=== PATIENT | female | born 1980 | race Caucasian/White ===

== ENCOUNTER 2017-11-25 05:00 | Inpatient (IN) | payer BC ==
[2017-11-25] MEDS ORDERED: Gabapentin 300 MG Cap PO ONE (05:30)
[2017-11-25] MEDS ORDERED: Acetaminophen 500 MG Tab PO ONE (05:30)
[2017-11-25] MEDS ORDERED: Celecoxib 200 MG Cap PO ONE (05:30)
[2017-11-25] MEDS ORDERED: Scopolamine 1.5 MG Transdermal Patch TOP SCH (05:30)
[2017-11-25] MEDS ORDERED: Dextrose 5%-Lactated Ringers 1,000 ML IV SCH (06:00)
[2017-11-25] MEDS ORDERED: cefOXitin 2 GM Vial ONE (06:36)
[2017-11-25] MEDS ORDERED: cefOXitin 2 GM in Premix Bag 1 BAG IV ONE (07:00)
[2017-11-25] MEDS ORDERED: fentaNYL 250 MCG/5 ML SDV ONE (07:01)
[2017-11-25] MEDS ORDERED: Glycopyrrolate 0.2 MG/ML 5 ML MDV ONE (07:02)
[2017-11-25] MEDS ORDERED: Midazolam 1 MG/ML 2 ML SDV ONE (07:02)
[2017-11-25] MEDS ORDERED: Succinylcholine 200 MG/10 ML MDV ONE (07:02)
[2017-11-25] MEDS ORDERED: Rocuronium 50 MG/5 ML Vial ONE (07:02)
[2017-11-25] MEDS ORDERED: Ondansetron 4 MG/2 ML SDV ONE (07:02)
[2017-11-25] MEDS ORDERED: Neostigmine Methylsulfate 1 MG/ML 5 ML Syringe ONE (07:02)
[2017-11-25] MEDS ORDERED: Propofol 200 MG/20 ML SDV ONE (07:02)
[2017-11-25] MEDS ORDERED: Dexamethasone 4 MG/ML SDV ONE (07:02)
[2017-11-25] MEDS ORDERED: Lidocaine 2% 100 MG/5 ML Syringe IVPUSH ONE (07:30)
[2017-11-25] MEDS ORDERED: Ropivacaine 60 ML, Dexamethasone 8 MG, EPINEPHrine 0.4 MG, Sodium Chloride 0.9% 17.6 ML NERVRT SCH ×4 (07:30)
[2017-11-25] MEDS ORDERED: Ketamine 500 MG/5 ML MDV IV SCH (07:30)
[2017-11-25] MEDS ORDERED: Lactated Ringers 1,000 ML ONE (08:33)
[2017-11-25] MEDS ORDERED: Insulin Aspart 100 Units/ML 3 ML Pen SUBCUT ONE (09:29)
[2017-11-25] MEDS ORDERED: Ondansetron 4 MG/2 ML SDV IVPUSH ONE (09:30)
[2017-11-25] MEDS ORDERED: Ropivacaine 30 ML, Dexamethasone 8 MG, EPINEPHrine 0.4 MG, Sodium Chloride 0.9% 47.6 ML NERVRT SCH ×4 (10:15)
[2017-11-25] MEDS: Lidocaine 0.4%/D5W 2 GM/500 ML BAG IV SCH (10:33)
[2017-11-25] MEDS ORDERED: hydrOXYzine HCl 100 MG/2 ML SDV ONE (10:36)
[2017-11-25] MEDS ORDERED: diphenhydrAMINE 50 MG/ML SDV IVPUSH PRN (11:00)
[2017-11-25] MEDS ORDERED: 50% Dextrose in Water 50 ML Syringe IVPUSH PRN (11:00)
[2017-11-25] MEDS ORDERED: Labetalol 20 MG/4 ML Syringe IVPUSH PRN (11:00)
[2017-11-25] MEDS ORDERED: Ondansetron 4 MG/2 ML SDV IVPUSH PRN (11:00)
[2017-11-25] MEDS ORDERED: Insulin Aspart 100 Units/ML 3 ML Pen SUBCUT PRN (11:00)
[2017-11-25] MEDS ORDERED: hydrOXYzine HCl 100 MG/2 ML SDV IM PRN (11:00)
[2017-11-25] MEDS ORDERED: Metoclopramide 10 MG/2 ML SDV IVPUSH PRN (11:00)
[2017-11-25] MEDS ORDERED: Glucagon,Human Recombinant 1 MG Vial IM PRN (11:00)
[2017-11-25] MEDS: Pantoprazole 40 MG Vial IVPUSH SCH (11:21)
[2017-11-25] MEDS ORDERED: Acetaminophen 160 MG Tab,Disintegrating PO SCH (12:00)
[2017-11-25] MEDS: Acetaminophen 160 MG Tab,Disintegrating PO SCH ×2 (12:39→18:12)
[2017-11-25] MEDS: cefOXitin 2 GM in Sodium Chloride 0.9% 50 ML IV SCH ×2 (13:34→18:12)
[2017-11-25] MEDS: Gabapentin 250 MG/5 ML Solution ML 470 ML Bottle PO SCH ×2 (14:02→21:32)
[2017-11-25] MEDS: MVI, Adult with Vitamin K 10 ML, Thiamine 200 MG, Chromium/Copper/Mang/Selen/Zn 1 ML in... IV SCH ×4 (15:19)
[2017-11-25] MEDS: Heparin Sodium 5,000 Units/ML Vial SUBCUT SCH (18:11)
[2017-11-25] MEDS: Dextrose 5%-Lactated Ringers 1,000 ML IV SCH (21:38)
[2017-11-26] MEDS: Acetaminophen 160 MG Tab,Disintegrating PO SCH ×4 (00:24→17:02)
[2017-11-26] MEDS: cefOXitin 2 GM in Sodium Chloride 0.9% 50 ML IV SCH (00:30)
[2017-11-26] MEDS: Lidocaine 0.4%/D5W 2 GM/500 ML BAG IV SCH (00:31)
[2017-11-26] MEDS ORDERED: Iohexol 647 MG/ML 50 ML SDV PO PRN (03:16)
[2017-11-26] MEDS: Dextrose 5%-Lactated Ringers 1,000 ML IV SCH (03:43)
[2017-11-26] MEDS: Heparin Sodium 5,000 Units/ML Vial SUBCUT SCH ×2 (06:14→17:03)
[2017-11-26] MEDS ORDERED: Oxymetazoline 0.05% Nasal Spray 15 ML Bottle NAS PRN (08:07)
[2017-11-26] MEDS ORDERED: Dextrose 5%-Lactated Ringers 1,000 ML IV SCH (08:15)
[2017-11-26] MEDS: Gabapentin 250 MG/5 ML Solution ML 470 ML Bottle PO SCH ×3 (08:30→22:34)
[2017-11-26] MEDS: Celecoxib 200 MG Cap PO SCH (08:32)
[2017-11-26] MEDS: SCOPOLAMINE PATCH CHECK TOP SCH (08:33)
[2017-11-26] MEDS ORDERED: FLUoxetine 20 MG Cap PO SCH ×2 (09:00→21:00)
[2017-11-26] MEDS: Pantoprazole 40 MG Vial IVPUSH SCH (11:28)
[2017-11-26] MEDS: MVI, Adult with Vitamin K 10 ML, Thiamine 200 MG, Chromium/Copper/Mang/Selen/Zn 1 ML in... IV SCH ×4 (17:02)
[2017-11-27] MEDS: Acetaminophen 160 MG Tab,Disintegrating PO SCH ×3 (00:06→12:15)
[2017-11-27] MEDS: Heparin Sodium 5,000 Units/ML Vial SUBCUT SCH (05:50)
[2017-11-27] MEDS: Celecoxib 200 MG Cap PO SCH (08:28)
[2017-11-27] MEDS: Gabapentin 250 MG/5 ML Solution ML 470 ML Bottle PO SCH (08:29)
[2017-11-27] MEDS: SCOPOLAMINE PATCH CHECK TOP SCH (08:30)
[2017-11-27] MEDS ORDERED: Cyanocobalamin (Vitamin B12) 1,000 MCG/ML SDV IM ONE (09:00)
[2017-11-27] MEDS ORDERED: Magnesium Hydroxide 400 MG/5 ML Susp 30 ML Cup PO ONE (10:41)
[2017-11-27] MEDS: Pantoprazole 40 MG Vial IVPUSH SCH (12:40)
--- NOTE | 2017-11-29 08:45 | CR ---
UGI wo KUB HISTORY: eval R -Y GBP FINDINGS: After administration of oral contrast, upright views were obtained. Post operative changes gastric bypass. Surgical drains in place. No evidence for leak. Contrast passes freely into proximal small bowel loops. IMPRESSION: No evidence for leak or obstruction.
--- NOTE | 2017-11-29 09:58 | PN ---
DATE OF SERVICE: 11/26/2017 The patient has been afebrile with stable vital signs. Oral intake has been reasonably satisfactory, will go up to step-2 diet today. Her blood sugars have been satisfactory without coverage and we will not restart the metformin otherwise maximize activity, work with pulmonary toilet. She will be ready for discharge home tomorrow. Los Casiano MD /[id number]
--- NOTE | 2017-11-29 13:22 | DISCH ---
FINAL DIAGNOSES: 1. Morbid obesity. 2. Marked hepatomegaly. 3. Paraesophageal diaphragmatic hernia associated with mediastinal lipoma. SECONDARY DIAGNOSIS: 1. Anxiety. 2. Polycystic ovary syndrome. 3. History of hyperlipidemia. 4. Type 2 diabetes mellitus. 5. Gastroesophageal reflux disease. 6. Obstructive sleep apnea. OPERATIVE PROCEDURE: This was done on 11/25/17: Laparoscopic Ryland-en-Y gastric bypass with long limb gastroenterostomy, liver biopsy, and repair of paraesophageal diaphragmatic hernia, along with excision of mediastinal lipoma. HOSPITAL COURSE: This is a 37-year-old female presenting with longstanding morbid obesity and increasingly significant comorbidities. After preoperative evaluation and discussion, she wished to proceed with a gastric bypass procedure. This was done on the date of admission, along with the above noteed procedure. The patient did have a fairly significant hepatomegaly present. Postoperatively, she has done well with no significant problems, tolerating step-2 diet. Her blood sugars have been good off metformin, and she will be sent home without the metformin. Otherwise, we will have her continue the Afrin nasal spray, omeprazole 40 mg a day while she is on Celebrex and then discontinue thereafter. The Celebrex will be instructed to take 200 mg daily x5 and then p.r.n., along with Tylenol chewable p.r.n., Prozac 40 mg daily will be continued, and she will continue routine use of the Nexplanon. Followup will be with Elyssa Agustin at [facility] on 12/05/2017.
--- NOTE | 2017-12-05 14:50 | OR ---
DATE OF PROCEDURE: 11/25/2017 PREOPERATIVE DIAGNOSIS: Morbid obesity. POSTOPERATIVE DIAGNOSES: 1. Morbid obesity. 2. Marked hepatomegaly. 3. Paraesophageal diaphragmatic hernia. 4. Mediastinal lipoma. OPERATIVE PROCEDURES: 1. Laparoscopic Ryland-en-Y gastric bypass with long limb gastroenterostomy (78702). 2. Dayday-Cut needle liver biopsy (45045). 3. Repair of paraesophageal diaphragmatic hernia (52479). 4. Excision of mediastinal lipoma (13347). ANESTHESIA: General. [employer]: Elyssa Agustin PA-C. INDICATION FOR PROCEDURE: This is a 37-year-old female presenting with longstanding morbid obesity and increasingly significant comorbidities. After preoperative evaluation and discussion, she wished to proceed with a gastric bypass procedure. Potential risks including bleeding, infection, leaks from various GI tract closures, problems with bowel obstruction over time, as well as possibility of cardiopulmonary, septic, or hemorrhagic complications leading to were discussed, and the patient wishes to proceed. DETAILS OF PROCEDURE: The patient was taken to the operating room and, after general endotracheal anesthesia was induced, placed in a lithotomy position. Orogastric tube was placed and the abdomen prepped and draped. At 15 cm inferior, 5 cm left of xiphoid process, a transverse incision was made and the peritoneal cavity entered under direct vision with an Optiview trocar. The laparoscope was reinserted. No underlying trocar insertion site injuries were seen. Following this, bilateral subcostal transversus abdominis plane blocks were placed using standard solution and with needle being directly visualized in the correct plane. Following this, 5 additional trocars were placed across her upper and mid abdomen, and general exploration was undertaken. The patient was noted to have a marked hepatomegaly with liver volume being roughly 2 to 3 times normal and liver grossly fatty infiltrated. Dayday-Cut needle biopsies were obtained from the left lobe of the liver. Minimal bleeding from the biopsy sites was noted and controlled with electrocautery. The omentum was then divided in midline at the level of transverse colon. This allowed identification of the small bowel to the ligament of Treitz. The small bowel was then traced out 200 cm distal to that point, where it was divided transversely with a MUKUND stapler. The small bowel was then traced out an additional 150 cm, where the [id number] enteroenterostomy was accomplished with internal firing of the Endo-MUKUND 60 mm stapler, common opening was then closed transversely with same stapler, angles anastomosed, and the mesenteric defect approximated with some 0 Ethibond stitch, along with fibrin sealant. The divided end of the Ryland limb was then from the mesentery for a few centimeters, which allowed an antecolic positioning of the Ryland limb up to the level of the gastroesophageal junction without tension. The liver was then retracted anteriorly. The patient was noted to have a moderate-sized paraesophageal diaphragmatic hernia. This included some perigastric fat, along with fundus of the stomach and a tongue of omentum extending along the plane of the esophagus. This was reduced and the peritoneum overlying it incised and reflected downward. During the course of the dissection of the diaphragmatic hernia, mediastinal lipoma was encountered and this was excised to facilitate a more adequate closure. The crural repair was then accomplished with some 0 Ethibond sutures reinforced with PTFE pledgets. The gastrointestinal balloon catheter was then inflated to 15 mL and pulled up snugly against the EG junction. The gastric wall over the apex balloon was then marked with electrocautery and balloon catheter deflated and pulled up into the esophagus. The lesser omental tissue adjacent to the gastric cardia was then incised, allowing dissection behind the stomach at that level. The pouch formation was initiated with a transverse firing of the MUKUND stapler at the level of the cauterized harper in the gastric cardia and continued up to and through the angle of His with additional MUKUND firings until the pouch staple line was completed. Upon completion of the pouch, both staple lines were noted to be intact. The anvil of a 25 mm EEA stapler was then attached to a Grimes sump-type tube and the latter was brought down through the mouth and taken out through a small opening in the gastric pouch, allowing the anvil likewise to be pulled down to within the gastric pouch. The divided end of the Ryland limb was then opened, and the main body of the EEA stapler was passed several centimeters into the lumen of the small bowel, brought up the anvil and united with it, thus creating the gastrojejunostomy. Upon removal of the stapler, double donuts of mucosa were noted within it. The small bowel was closed off with a vascular staple line. Gastrojejunostomy was reinforced with some 3-0 Vicryl seromuscular stitch, along with fibrin sealant. The leak test was accomplished with injection of 120 mL of air in the gastric pouch while submerged with cefoxitin-containing saline solution. No leaks were identified. A single Selvin-Lincoln drain was then taken out through the left lateral trocar site and positioned adjacent to the gastrojejunostomy and from there up into the splenic fossa. With no further problems noted, trocars were removed, and the peritoneal cavity was deflated. The incision was closed with some 4-0 Vicryl skin stitch, which was also used to affix the drain. Dressing was applied. The patient was taken to the recovery room in a satisfactory condition. Physician photo studio assistant, Elyssa Agustin, played an essential role in assisting in this case, helping to position the patient, retract structures as needed, as well as suturing and cutting sutures when indicated. Her presence improved patient's safety and decreased the operative time. Los Casiano MD /[id number]
== END 2017-11-27 01:10 | disposition home or self-care (01) | DRG 403 ==
LOC: JP.SDS 05:00 → JP.SDSSCHI 05:00 → JP.2SS 08:50 → EDSTATUS 15:30
PROVIDERS: ADMIT Surgery; ATTEND Surgery
PROC: 0D164ZA Bypass Stomach to Jejunum, Percutaneous Endoscopic Approach (ICD-10-PCS; principal; 2017-11-25)
PROC: 0FB24ZX Excision of Left Lobe Liver, Percutaneous Endoscopic Approach, Diagnostic (ICD-10-PCS; 2017-11-25)
PROC: 0BQT4ZZ Repair Diaphragm, Percutaneous Endoscopic Approach (ICD-10-PCS; 2017-11-25)
PROC: 0WBC4ZX Excision of Mediastinum, Percutaneous Endoscopic Approach, Diagnostic (ICD-10-PCS; 2017-11-25)
PROC: 3E0T3BZ Introduction of Anesthetic Agent into Peripheral Nerves and Plexi, Percutaneous Approach (ICD-10-PCS; 2017-11-25)
DX: E66.01 Morbid (severe) obesity due to excess calories (principal); Z68.43 Body mass index [BMI] 50.0-59.9, adult; R16.0 Hepatomegaly, not elsewhere classified; K44.9 Diaphragmatic hernia without obstruction or gangrene; D17.4 Benign lipomatous neoplasm of intrathoracic organs; E11.9 Type 2 diabetes mellitus without complications; G47.33 Obstructive sleep apnea (adult) (pediatric); K21.9 Gastro-esophageal reflux disease without esophagitis; F41.9 Anxiety disorder, unspecified; K76.0 Fatty (change of) liver, not elsewhere classified
CPT/HCPCS: 36415; 74240; 74240-26; 82962; 86850; 86900; 86901; 88304; 88307; 88313; A9270-GY; C9113; J0171; J0330; J0694; J1100; J1644; J2001; J2250; J2405; J2704; J2710; J2765; J2795; J3010; J3410; J3411; J3420; J7030; J7042; J7050; J7120; Q9967